=== PATIENT | male | born 1975 | race Hispanic/Latino ===

== ENCOUNTER 2024-03-24 16:44 | Emergency (ER) | payer OTHER ==
[~2024-03-24] VITALS: Ht 170.2 cm; Wt 98.9 kg
[2024-03-24] MEDS ORDERED: AMLODIPINE BESYLATE 5 MG TAB PO ONE (18:30)
[2024-03-24 18:34] LABS: BASOPHILS 3.3 % (0-2); EOSINOPHILS 2.2 % (0-6); HEMATOCRIT 44.8 % (35.0-50.0); HEMOGLOBIN 16.1 g/dL (12.0-18.0); MCH 32.2 (27-36); MCHC 35.9 g/dl (30-36); MCV 89.7 fl (81-99); MONOCYTES 10.2 % (0-12); NEUTROPHILS 60.3 % (39-80); PLATELET COUNT 170 K/uL (140-440); RDW 13.2 (10.5-15.0)
[2024-03-24 18:48] LABS: ALBUMIN 3.5 g/dL (3.4-5.0); ALBUMIN/GLOBULIN RATIO 0.88 (1.1-2.4); ANION GAP 11.6 (7-21); BILIRUBIN, TOTAL 1.7 ng/dL (0.2-1.0); BUN/CREATININE RATIO 14.87 (6.0-28.6); CREATININE, SERUM 1.21 mg/dL (0.70-1.30); POTASSIUM 2.6 mmol/L (3.5-5.1); PROTEIN, TOTAL 7.5 g/dL (6.4-8.2)
[2024-03-24] MEDS ORDERED: NORVASC5 MG PO (18:51)
[2024-03-24] MEDS ORDERED: K-TAB ER20 MEQ PO (19:06)
[2024-03-24 19:15] VITALS: BP 200/143
[2024-03-24] MEDS ORDERED: POTASSIUM CHLORIDE 10 MEQ TABCR PO ONE (19:15)
== END 2024-03-24 19:14 | disposition home or self-care (01) ==
LOC: ED 16:44
PROVIDERS: Emergency Medicine
DX: I10 Essential (primary) hypertension (principal); E87.6 Hypokalemia
CPT/HCPCS: 36415; 80053; 83735; 85025; 99283; A9270